=== PATIENT | female | born 1995 | race Caucasian/White ===

== ENCOUNTER 2021-01-24 12:18 | Emergency (ER) | payer OTHER ==
[~2021-01-24 12:18] MED LIST: COLACE 100MG C100 MG PO; EXCEDRIN MIGRA1 EACH PO; FERROUS SULFAT325 M2 PO; IBUPROFEN600 MG PO; LORTAB 5-325 M1 EACH PO; NORCO 5-325 TA1 EACH PO; PRENATAL VITAM1 EAC8 PO
[2021-01-24 13:11] LABS: RED BLOOD COUNT 4.7 M/UL (4.00-5.10); WHITE BLOOD COUNT 6.5 K/UL (4.5-11.0)
[2021-01-24 13:24] LABS: BUN/CREATININE RATIO 15 (0-10)
== END 2021-01-24 15:33 | disposition home or self-care (01) ==
LOC: ER1 12:18
PROVIDERS: Physician Assistant
DX: O20.0 Threatened abortion (principal); Z88.0 Allergy status to penicillin
CPT/HCPCS: 76817; 80048; 81001; 84702; 85025; 86900; 86901; 99284

== ENCOUNTER 2021-01-26 19:27 | Emergency (ER) | payer OTHER ==
[2021-01-26 23:02] LABS: HEMOGLOBIN 10.7 gm/dl (12.3-15.3); RED BLOOD COUNT 4.64 M/UL (4.00-5.10)
[2021-01-26 23:05] LABS: WHITE BLOOD COUNT 9.1 K/UL (4.5-11.0)
[2021-01-26 23:26] LABS: BUN/CREATININE RATIO 22 (0-10)
== END 2021-01-27 00:43 | disposition home or self-care (01) ==
LOC: ER1 19:27
PROVIDERS: Family Medicine
DX: O03.9 Complete or unspecified spontaneous abortion without complication (principal); Z88.0 Allergy status to penicillin
CPT/HCPCS: 80053; 81001; 83690; 84702; 85025; 99284